=== PATIENT | male | born 1980 | race Caucasian/White ===

== ENCOUNTER 2018-09-15 16:22 | Emergency (ER) | payer OTHER ==
[2018-09-15 16:32] VITALS: BP 127/87
[2018-09-15] MEDS ORDERED: KETOROLAC 30 MG/1 ML SDV IM ONE (16:41)
--- NOTE | 2018-09-15 16:46 | EDPHY ---
H & P Time Seen by Provider: 09/15/18 16:28 HPI/ROS: HPI Sciatica. Right leg pain. 37-year-old male by private vehicle with his . This patient has a long history of right-sided sciatica. He had an MRI of his lumbar spine in August of 2016. This showed degenerative disc disease involving the L4-L5 and L5-S1 spaces. The L5-S1 was worse with posterior disc protrusion to the right impinging on the nerve route. He presents to the emergency department with complaint of typical sciatica pain. He states that this pain goes down the back of his right thigh but not below the knee. He denies any weakness. He has had no loss of sensation. No bowel or bladder incontinence. No history of trauma. He has no other complaints. He states that Toradol has worked well for him in the past. He is requesting intramuscular Toradol. ROS: Constitutional: No fever, no chills. No weakness. Musculoskeletal: No back pain. No neck pain. As above. Skin: No rashes. Neurological: No headache. No focal weakness or altered sensation. As above. Past medical history: As above. No other significant past medical history. Social history: . Here with his and children. No alcohol. Nonsmoker. Physical Exam: General Appearance: Alert, no distress. This patient is responding to questions appropriately and in full sentences. This patient appears well- hydrated and well-nourished. Eyes: Pupils equal and round no pallor or injection. No lid edema, erythema or injection. Back exam: No midline thoracic, lumbar, sacral tenderness on palpation. No tenderness on palpation over the sacroiliac joints. No soft tissue changes on gross inspection of the back. He has a negative cross side and same side straight leg raise test. He does have increased pain with elevation of his right lower extremity but the pain does not go below his knee. He is neurologically intact in all myotomes in dermatomes of the bilateral lower extremities. Neurological: Motor sensory function is grossly intact. Cranial nerves are normal. Gait is normal. Skin: Warm and dry, no rashes. Extremities are symmetrical. All joints range without pain or impingement. Psychiatric: No agitation. No depression. Database: EKG: Imaging: Procedures: Emergency department course: Triage vital signs reviewed and are normal. He has no contraindications to NSAIDs. No history of renal dysfunction or peptic ulcer disease. He will be given a dose of intramuscular Toradol. Patient feels comfortable being discharged after this. I discussed follow-up with nonsurgical [facility] specialist [facility]. I also talked to him about follow-up with a neuro spine surgeon to discuss options of treatment. He is in agreement with this plan. Return to emergency department precautions reviewed with him. All of his questions were answered. He was discharged from the emergency department in good condition. Differential Diagnosis: The differential diagnosis on this patient includes but is not limited to sciatica. Acute radiculopathy, epidural compression syndrome, epidural abscess , AAA, acute traumatic injury, malignancy unlikely. This represents a partial list of diagnoses considered. These considerations are based on history, physical exam, past history, reassessment and diagnostic testing. Smoking Status: Never smoked Constitutional: Initial Vital Signs Temperature (C) 36.7 C 09/15/18 16:28 Heart Rate 84 09/15/18 16:28 Respiratory Rate 16 09/15/18 16:28 Blood Pressure 127/87 H 09/15/18 16:28 O2 Sat (%) 95 09/15/18 16:28 O2 Delivery Mode Room Air Allergies/Adverse Reactions: No Known Allergies Allergy (Verified 09/15/18 16:27) Home Medications: Medication Instructions Recorded NK [No Known Home Meds] 09/15/18 Departure - Departure Disposition: Home, Routine, Self-Care Clinical Impression: Sciatica Condition: Good Instructions: Sciatica (ED) Additional Instructions: Read and follow provided instructions. Follow-up with [facility] as discussed for evaluation and non surgical treatment options. Follow-up with neuro surgery to discuss possible surgical treatment options. Return to the emergency department for worsening pain, loss of sensation or weakness in her lower extremities, bowel or bladder incontinence or other serious concerns. Referrals: [facility] [Outside] - As per Instructions Dao Yoon MD [Medical Doctor] - As per Instructions
== END 2018-09-15 16:57 | disposition home or self-care (01) ==
LOC: CED 16:22
DX: M54.31 Sciatica, right side (principal); M51.36 Other intervertebral disc degeneration, lumbar region; M51.37 Other intervertebral disc degeneration, lumbosacral region
CPT/HCPCS: J1885

== ENCOUNTER → 2018-10-10 | Outpatient (CLI) | payer OTHER | LOC: FIMAGING 13:19 | PROVIDERS: ATTEND Physical Medicine & Rehabilitation | DX: M51.06 Intervertebral disc disorders with myelopathy, lumbar region (principal); M51.36 Other intervertebral disc degeneration, lumbar region ==